=== PATIENT | male | born 1970 | race Caucasian/White ===

== ENCOUNTER 2017-05-20 16:30 | Emergency (ER) | payer OTHER ==
[~2017-05-20] VITALS: Ht 175.3 cm; Wt 77.1 kg
[2017-05-20 16:34] VITALS: BP 163/111
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
[2017-05-20] MEDS ORDERED: VICODIN 5-3001 EACH PO (18:07)
[2017-05-20] MEDS ORDERED: MEDROL4 M2 PO (18:07)
[2017-05-20] MEDS ORDERED: CYCLOBENZAPRINE10 M1 PO (18:07)
== END 2017-05-20 18:25 ==
LOC: ERH 16:30
DX: M54.5 Low back pain (principal); M54.16 Radiculopathy, lumbar region
CPT/HCPCS: 96372; J1885